=== PATIENT | female | born 1940 | race Caucasian/White ===

== ENCOUNTER 2021-12-20 10:10 | Emergency (ER) | payer MEDICARE, BC, SELFPAY ==
[2021-12-20] VITALS (60 sets, daily range): BP systolic 115–235; BP diastolic 58–150; PULSE 76–132; RESP 11–34; TEMP 36.7; O2SAT 92–98; BMI 32.8
--- NOTE | 2021-12-20 10:14 | DI.RAD.S_ITS ---
PROCEDURE: XR CHEST 1V INDICATIONS: chest pain TECHNIQUE: One view of the chest was acquired. COMPARISON: None. FINDINGS: Surgical changes and devices: None. Lungs and pleura: There is moderate patchy diffuse reticulonodular pulmonary opacity with basilar predominance. No pleural effusions or pneumothorax. Mediastinum: Mediastinal contours appear normal. Heart size is normal. Bones and chest wall: No suspicious bony lesions. Overlying soft tissues appear unremarkable. IMPRESSION: Moderate atypical pneumonia. Dictated by: Christy Larson M.D. on 12/20/2021 at 10:42 Approved by: Christy Larson M.D. on 12/20/2021 at 10:42
[2021-12-20 10:30] LABS: Add Manual Diff / Slide Review NO; Basophils Absolute Auto 100 /uL (0-100); Basophils Percent Auto 0.7 % (0-2); Eosinophils Absolute Auto 200 /uL (0-450); Eosinophils Percent Auto 2.7 % (2-4); Hematocrit 41.1 % (36-46); Hemoglobin 13.7 g/dL (12.0-16.0); Lymphocytes Absolute Auto 1100 /uL (1100-4500); Lymphocytes Percent Auto 14.1 % (25-40); Mean Corpuscular HGB Conc 33.4 % (30-36); Mean Corpuscular Hemoglobin 28.8 PG (26-34); Mean Corpuscular Volume 86.2 fL (80-100); Monocytes Absolute Auto 900 /uL (0-900); Monocytes Percent Auto 11.7 % (3-14); Neutrophils Absolute Auto 5500 /uL (1500-7000); Neutrophils Percent Auto 70.8 % (50-75); Platelet Count 213 X10^3/uL (150-400); Red Blood Cell Count 4.77 X10^6/uL (4.0-5.2); Red Cell Distribution Width 17.1 % (11.6-14.8); White Blood Cell Count 7.7 X10^3/uL (4.5-11.0)
[2021-12-20] MEDS: NITROGLYCERIN 0.4 MG SL TAB SL ×3 (10:35→10:46)
[2021-12-20 10:38] LABS: INR 1.2 (0.9-1.3); Prothrombin Time 13.5 SECONDS (10.1-12.7)
[2021-12-20] MEDS: ASPIRIN 81 MG CHEW TAB 324 MG PO (10:40)
[2021-12-20 10:41] LABS: PTT Partial Thromboplastin Tim 38 SECONDS (26.4-36.2)
[2021-12-20 10:42] LABS: Alanine Aminotransferase 23 IU/L (<35); Albumin 4.7 g/dL (3.5-5.0); Albumin Globulin Ratio 1.3 (1.0-2.8); Alkaline Phosphatase 119 U/L (38-126); Aspartate Aminotransferase 33 IU/L (14-36); BUN Creatinine Ratio 22.4 (6-22); Bilirubin Total 1.4 mg/dL (0.2-1.3); Blood Urea Nitrogen 17 mg/dL (7-17); Calcium 9.1 mg/dL (8.4-10.2); Carbon Dioxide 28 mmol/L (22-32); Chloride 95 mmol/L (98-107); Creatine Kinase 76 U/L (30-135); Estimated Glomerular Filt Rate > 60 mL/min (>60); Globulin 3.5 g/dL (1.7-4.1); Glucose 167 mg/dL (80-110); HEMOLYSIS < 15 (0-50); Lipase 200 U/L (23-300); Magnesium 1.8 mg/dL (1.6-2.3); Potassium 4.2 mmol/L (3.4-5.1); Sodium 133 mmol/L (137-145); Total Protein 8.2 g/dL (6.3-8.2)
[2021-12-20 10:45] LABS: COVID19 -Nasal RAPID Negative (Negative)
--- NOTE | 2021-12-20 10:53 | ED_ITS ---
HPI - Chest Pain General Chief Complaint: Chest Pain Stated Complaint: Chest pain Time Seen by Provider: 12/20/21 10:34 Source: patient and family (daughter in law) Mode of arrival: Wheelchair Limitations: no limitations History of Present Illness HPI narrative: This is an a 81-year-old female with known atrial fibrillation on Eliquis, prior cardiac stents remotely, insulin-dependent diabetes. Patient states this morning just after breakfast about 8:30 a.m. she developed substernal and just to the left chest pain radiating towards her back without any radiation down her arm or to her neck or abdomen. She states it has been persistent, she describes it as crushing has its maximum but not quite as intense upon arrival it has improved after 2 sublingual nitro but still present. She is recently had some shortness of breath but not worsened today, her and her [id number] both noted she has increasing swelling bilateral lower extremities recently she took a Lasix yesterday. She denies diaphoresis, no nausea or vomiting. No shortness of breath currently. She felt a little lightheaded this morning but no presyncope or syncope. Denies fevers or chills. She is had a mild cough. She does not appreciate any exertional component to her chest pain. She had similar symptoms about 2 months ago, and has had an EGD and colonoscopy to evaluate for anemia in July or August of 2021. Patient states since then she just has not felt right. She states she is had cardiac stents at least 10 years or more in the past when she lived in [place], prior gastric bypass, denies other cardiac interventions such as valve replacement, pacemaker ablation. States she is allergic to fentanyl and was told she had a reaction under anesthesia with it. No tobacco, alcohol or illicit. Her primary care is through [facility]. She is not currently established with Cardiology. Patient was living in the [facility] but has just moved in with her family locally. Related Data Allergies Allergy/AdvReac Type Severity Reaction Status Date / Time fentanyl Allergy Verified 12/20/21 10:15 Review of Systems Review of Systems ROS Unobtainable: All systems reviewed & are unremarkable except as noted in HPI and below Patient History Social History Smoking Status: Unknown if ever smoked Smoking Status: Unknown if ever smoked alcohol intake frequency: holidays/special occasions only Substance Use Type: does not use Exam Narrative Exam Narrative: GENERAL: Alert and oriented x three, elderly obese female in mild distress. HEENT: Head normocephalic, atraumatic, EOMI, pupils reactive, face symmetric, moist mucous membranes NECK: Supple, full range of motion CARDIOVASCULAR: Regular rate and rhythm without murmurs, rubs or gallops. No JVD. 2+ edema bilateral lower extremities. RESPIRATORY: Breath sounds equal bilaterally, no wheezes rales or rhonchi. No tachypnea, no accessory muscle use. Speaks in full sentences. ABDOMEN: Soft, nontender. Normoactive bowel sounds all 4 quadrants. No guarding or rebound, rigidity, no mass : No CVA tenderness EXTREMITIES: Normal range of motion. Neurovascularly intact NEUROLOGICAL: Cranial nerves II through XII grossly intact. Moving all extremities SKIN: Warm, dry, no petechiae, no rashes or lesions. Initial Vital Signs Initial Vital Signs: Vital Signs Temperature 98.0 F 12/20/21 10:10 Pulse Rate 132 H 12/20/21 10:10 Respiratory Rate 25 H 12/20/21 10:10 Blood Pressure 235/107 H 12/20/21 10:10 Pulse Oximetry 96 12/20/21 10:10 Oxygen Delivery Method 12/20/21 10:10 Course Orders Ordered: ED Orders 12/20/21 10:10 BNP [NT-proBNP (BNP-Adult 18+)] Stat COVID19 -Nasal RAPID/Pre-Proc Stat Complete Blood Count AUTO DIFF Stat Comprehensive Metabolic Panel Stat Lipase Stat Magnesium Stat Partial Thromboplastin Time Stat Prothrombin Time INR Stat Troponin & CK Cardiac Panel Stat 12/20/21 10:12 EKG-12 Lead Stat 12/20/21 10:14 XR chest 1V Stat 12/20/21 12:09 Trop I [Troponin I] Stat EKG-12 Lead Stat 12/20/21 13:15 EC echo doppler complete Stat 12/20/21 15:22 Partial Thromboplastin Time Stat 12/20/21 18:24 Troponin I Q6H 12/20/21 19:00 Partial Thromboplastin Time Q6H 12/21/21 01:00 Partial Thromboplastin Time Q6H 12/21/21 07:00 Partial Thromboplastin Time Q6H Nitroglycerin (Nitroglycerin) 50 mg in 250 mls @ 1.5 mls/hr IV TITRATE OMAR; Protocol Last Admin: 12/20/21 13:51 Dose: 5 mcg/min, 1.5 mls/hr Documented By: ROSY Heparin Sodium/Dextrose (Heparin Drip) 25,000 unit in 500 mls @ 20.14 mls/hr IV CONT OMAR; Protocol Last Admin: 12/20/21 16:05 Dose: 12 units/kg/hr, 20.14 mls/hr Documented By: MELANI Discontinued Medications Aspirin (Aspirin 81 Mg Chew Tab) 324 mg PO NOW ONE Stop: 12/20/21 10:35 Last Admin: 12/20/21 10:40 Dose: 324 mg Documented By: ROSY Atorvastatin Calcium (Atorvastatin 20 Mg Tablet) 80 mg PO NOW ONE Stop: 12/20/21 13:17 Last Admin: 12/20/21 13:53 Dose: 80 mg Documented By: ROSY Furosemide (Furosemide 40 Mg/4 Ml Vial) 40 mg IV NOW ONE Stop: 12/20/21 11:57 Last Admin: 12/20/21 12:10 Dose: 40 mg Documented By: JOHNATHAN Heparin Sodium (Porcine) (Heparin 5,000 Unit/Ml Vial) 5,000 unit IV NOW ONE Stop: 12/20/21 12:58 Last Admin: 12/20/21 13:09 Dose: 5,000 unit Documented By: MELANI Heparin Sodium/Dextrose (Heparin Drip) 25,000 unit in 500 mls @ 20 mls/hr IV CONT OMAR; Protocol Last Titration: 12/20/21 16:10 Dose: 0 units/hr, 0 mls/hr Documented By: Titration: 12/20/21 16:04 Dose: 0 units/hr, 0 mls/hr Documented By: Admin: 12/20/21 13:09 Dose: 1,000 units/hr, 20 mls/hr Documented By: MELANI Nitroglycerin (Nitroglycerin 0.4 Mg Sl Tab) 0.4 mg SL [id number] PRN PRN Reason: Chest Pain Last Admin: 12/20/21 10:46 Dose: 0.4 mg Documented By: Admin: 12/20/21 10:41 Dose: 0.4 mg Documented By: Admin: 12/20/21 10:35 Dose: 0.4 mg Documented By: ROSY Nitroglycerin (Nitroglycerin Oint 1 Inch/Gm Oint...G.) 0.5 inch TOP NOW ONE Stop: 12/20/21 12:15 Last Admin: 12/20/21 12:22 Dose: 0.5 inch Documented By: KF Reevaluation(s) Reevaluation #1: Patient chest pain improved but not resolved, level 2-3. Reevaluation #2: Updated patient on recomendations from cardiology and elevated troponin. Time: 13:24 Reevaluation #3: On recheck patient is chest pain free on nitro gtt and heparin gtt. Consultations Consultation #1: Dr. Morales, cardiology. Agrees with current plan for nitro drip, heparin, transfer for evaluation by Cardiology and cardiac catheterization. Time: 13:15 Consultation #2: Dr. Guardado, cardiology [facility] is happy to see the patient at their facility. Asked that we speak with the hospitalist service. Time: 14:37 Consultation #3: Dr. Argueta, hospitalist accepts at [facility] in [place]. Vital Signs Vital signs: Vital Signs - 8 hr 12/20/21 10:46 12/20/21 10:47 12/20/21 11:00 Pulse Rate 93 H 93 H Respiratory Rate 18 Blood Pressure 169/74 H 169/76 H 149/70 H Pulse Oximetry 98 Oxygen Delivery Method 12/20/21 11:00 12/20/21 11:15 12/20/21 11:30 Pulse Rate 82 77 Respiratory Rate 33 H 25 H Blood Pressure 164/72 H Pulse Oximetry 94 95 Oxygen Delivery Method 12/20/21 11:30 12/20/21 12:22 12/20/21 13:51 Pulse Rate 78 98 H 77 Respiratory Rate 16 Blood Pressure 159/74 H 143/72 H Pulse Oximetry 96 Oxygen Delivery Method 12/20/21 13:14 12/20/21 13:14 12/20/21 13:15 Pulse Rate 84 Respiratory Rate 24 Blood Pressure 126/68 Pulse Oximetry 97 97 Oxygen Delivery Method Room Air Room Air 12/20/21 13:27 12/20/21 13:27 12/20/21 13:30 Pulse Rate 82 Respiratory Rate 18 Blood Pressure 148/70 H 146/68 H Pulse Oximetry 95 Oxygen Delivery Method Room Air 12/20/21 13:30 12/20/21 13:35 12/20/21 13:35 Pulse Rate 79 80 Respiratory Rate 14 17 Blood Pressure 147/70 H Pulse Oximetry 95 95 Oxygen Delivery Method Room Air Room Air 12/20/21 13:40 12/20/21 13:40 12/20/21 13:45 Pulse Rate 78 Respiratory Rate 19 Blood Pressure 162/71 H 155/70 H Pulse Oximetry 93 Oxygen Delivery Method Room Air 12/20/21 13:45 12/20/21 13:50 12/20/21 13:50 Pulse Rate 80 81 Respiratory Rate 18 22 Blood Pressure 143/72 H Pulse Oximetry 93 94 Oxygen Delivery Method Room Air Room Air 12/20/21 13:55 12/20/21 13:55 12/20/21 14:00 Pulse Rate 82 Respiratory Rate 22 Blood Pressure 148/70 H 135/68 Pulse Oximetry 96 Oxygen Delivery Method Room Air 12/20/21 14:00 12/20/21 14:05 12/20/21 14:05 Pulse Rate 80 81 Respiratory Rate 14 11 L Blood Pressure 137/61 Pulse Oximetry 95 94 Oxygen Delivery Method Room Air Room Air 12/20/21 14:10 12/20/21 14:10 12/20/21 14:15 Pulse Rate 80 Respiratory Rate 22 Blood Pressure 136/66 126/59 L Pulse Oximetry 95 Oxygen Delivery Method Room Air 12/20/21 14:15 12/20/21 14:20 12/20/21 14:20 Pulse Rate 82 80 Respiratory Rate 18 13 Blood Pressure 115/58 L Pulse Oximetry 95 96 Oxygen Delivery Method Room Air Room Air 12/20/21 14:25 12/20/21 14:25 12/20/21 14:30 Pulse Rate 84 Respiratory Rate 19 Blood Pressure 128/66 129/64 Pulse Oximetry 93 Oxygen Delivery Method Room Air 12/20/21 14:30 12/20/21 14:35 12/20/21 14:35 Pulse Rate 81 84 Respiratory Rate 16 29 H Blood Pressure 132/60 Pulse Oximetry 96 94 Oxygen Delivery Method 12/20/21 14:45 12/20/21 15:00 12/20/21 15:15 Pulse Rate 88 85 81 Respiratory Rate 22 20 20 Blood Pressure Pulse Oximetry 96 95 95 Oxygen Delivery Method Room Air Room Air Room Air 12/20/21 15:19 12/20/21 15:19 12/20/21 15:20 Pulse Rate 83 Respiratory Rate 20 Blood Pressure 125/72 140/63 Pulse Oximetry 96 Oxygen Delivery Method Room Air 12/20/21 15:20 12/20/21 15:25 12/20/21 15:25 Pulse Rate 81 78 Respiratory Rate 20 15 Blood Pressure 129/62 Pulse Oximetry 96 97 Oxygen Delivery Method Room Air Room Air 12/20/21 15:30 12/20/21 15:30 12/20/21 15:35 Pulse Rate 80 Respiratory Rate 20 Blood Pressure 134/64 124/60 Pulse Oximetry 96 Oxygen Delivery Method Room Air 12/20/21 15:35 12/20/21 15:40 12/20/21 15:40 Pulse Rate 80 78 Respiratory Rate 20 18 Blood Pressure 128/60 Pulse Oximetry 97 96 Oxygen Delivery Method Room Air Room Air 12/20/21 15:45 12/20/21 15:45 12/20/21 15:50 Pulse Rate 76 Respiratory Rate 32 H Blood Pressure 119/58 L 119/61 Pulse Oximetry 95 Oxygen Delivery Method 12/20/21 15:50 12/20/21 16:00 12/20/21 16:15 Pulse Rate 81 86 85 Respiratory Rate Blood Pressure Pulse Oximetry 94 92 96 Oxygen Delivery Method 12/20/21 16:30 12/20/21 16:45 12/20/21 17:00 Pulse Rate 79 80 79 Respiratory Rate Blood Pressure Pulse Oximetry 97 96 96 Oxygen Delivery Method 12/20/21 17:15 12/20/21 17:30 12/20/21 17:45 Pulse Rate 82 79 83 Respiratory Rate Blood Pressure Pulse Oximetry 98 97 96 Oxygen Delivery Method 12/20/21 18:00 12/20/21 15:50 12/20/21 15:50 Pulse Rate 77 81 Respiratory Rate Blood Pressure 119/61 Pulse Oximetry 96 94 Oxygen Delivery Method 12/20/21 16:00 12/20/21 16:15 12/20/21 16:30 Pulse Rate 86 85 79 Respiratory Rate Blood Pressure Pulse Oximetry 92 96 97 Oxygen Delivery Method 12/20/21 16:45 12/20/21 17:00 12/20/21 17:15 Pulse Rate 80 79 82 Respiratory Rate Blood Pressure Pulse Oximetry 96 96 98 Oxygen Delivery Method 12/20/21 17:30 12/20/21 17:45 12/20/21 18:00 Pulse Rate 79 83 77 Respiratory Rate Blood Pressure Pulse Oximetry 97 96 96 Oxygen Delivery Method 12/20/21 18:15 07/28/22 18:20 12/20/21 18:20 Pulse Rate 88 85 Respiratory Rate Blood Pressure 155/67 H Pulse Oximetry 94 Oxygen Delivery Method MDM - Chest Pain Lab Data Result diagrams: 12/20/21 10:10 12/20/21 10:10 Labs: Lab Results 12/20/21 12/20/21 12/20/21 Range/Units 10:10 10:10 10:10 WBC 7.7 (4.5-11.0) X10^3/uL RBC 4.77 (4.0-5.2) X10^6/uL Hgb 13.7 (12.0-16.0) g/dL Hct 41.1 (36-46) % MCV 86.2 (80-100) fL MCH 28.8 (26-34) PG MCHC 33.4 (30-36) % RDW 17.1 H (11.6-14.8) % Plt Count 213 (150-400) X10^3/uL Neut % (Auto) 70.8 (50-75) % Lymph % (Auto) 14.1 L (25-40) % Bandera % (Auto) 11.7 (3-14) % Eos % (Auto) 2.7 (2-4) % Baso % (Auto) 0.7 (0-2) % Neut # (Auto) 5500 (6199-3799) /uL Lymph # (Auto) 1100 (7464-6751) /uL Bandera # (Auto) 900 (0-900) /uL Eos # (Auto) 200 (0-450) /uL Baso # (Auto) 100 (0-100) /uL PT 13.5 H (10.1-12.7) SECONDS INR 1.2 (0.9-1.3) APTT 38 H (26.4-36.2) SECONDS Sodium 133 L (137-145) mmol/L Potassium 4.2 (3.4-5.1) mmol/L Chloride 95 L (98-107) mmol/L Carbon Dioxide 28 (22-32) mmol/L BUN 17 (7-17) mg/dL Creatinine 0.76 (0.52-1.04) mg/dL Estimated GFR > 60 (>60) mL/min BUN/Creatinine Ratio 22.4 H (6-22) Glucose 167 H (80-110) mg/dL Calcium 9.1 (8.4-10.2) mg/dL Magnesium 1.8 (1.6-2.3) mg/dL Total Bilirubin 1.4 H (0.2-1.3) mg/dL AST 33 (14-36) IU/L ALT 23 (<35) IU/L Alkaline Phosphatase 119 (38-126) U/L Total Creatine Kinase 76 (30-135) U/L CK-MB (CK-2) TNP CK-MB (CK-2) Rel Index TNP Troponin I 0.021 (0.01-0.034) ng/mL NT-Pro-B Natriuret Pep (<450) pg/mL Total Protein 8.2 (6.3-8.2) g/dL Albumin 4.7 (3.5-5.0) g/dL Globulin 3.5 (1.7-4.1) g/dL Albumin/Globulin Ratio 1.3 (1.0-2.8) Lipase 200 (23-300) U/L SARS-CoV-2 (PCR) (Negative) 12/20/21 12/20/21 12/20/21 Range/Units 10:10 10:10 12:09 WBC (4.5-11.0) X10^3/uL RBC (4.0-5.2) X10^6/uL Hgb (12.0-16.0) g/dL Hct (36-46) % MCV (80-100) fL MCH (26-34) PG MCHC (30-36) % RDW (11.6-14.8) % Plt Count (150-400) X10^3/uL Neut % (Auto) (50-75) % Lymph % (Auto) (25-40) % Band[place] % (Auto) (3-14) % Eos % (Auto) (2-4) % Baso % (Auto) (0-2) % Neut # (Auto) (3305-5144) /uL Lymph # (Auto) (5067-7303) /uL Bandera # (Auto) (0-900) /uL Eos # (Auto) (0-450) /uL Baso # (Auto) (0-100) /uL PT (10.1-12.7) SECONDS INR (0.9-1.3) APTT (26.4-36.2) SECONDS Sodium (137-145) mmol/L Potassium (3.4-5.1) mmol/L Chloride (98-107) mmol/L Carbon Dioxide (22-32) mmol/L BUN (7-17) mg/dL Creatinine (0.52-1.04) mg/dL Estimated GFR (>60) mL/min BUN/Creatinine Ratio (6-22) Glucose (80-110) mg/dL Calcium (8.4-10.2) mg/dL Magnesium (1.6-2.3) mg/dL Total Bilirubin (0.2-1.3) mg/dL AST (14-36) IU/L ALT (<35) IU/L Alkaline Phosphatase (38-126) U/L Total Creatine Kinase (30-135) U/L CK-MB (CK-2) CK-MB (CK-2) Rel Index Troponin I 0.344 H* (0.01-0.034) ng/mL NT-Pro-B Natriuret Pep 814 H (<450) pg/mL Total Protein (6.3-8.2) g/dL Albumin (3.5-5.0) g/dL Globulin (1.7-4.1) g/dL Albumin/Globulin Ratio (1.0-2.8) Lipase (23-300) U/L SARS-CoV-2 (PCR) Negative (Negative) 12/20/21 Range/Units 14:15 WBC (4.5-11.0) X10^3/uL RBC (4.0-5.2) X10^6/uL Hgb (12.0-16.0) g/dL Hct (36-46) % MCV (80-100) fL MCH (26-34) PG MCHC (30-36) % RDW (11.6-14.8) % Plt Count (150-400) X10^3/uL Neut % (Auto) (50-75) % Lymph % (Auto) (25-40) % Bandera % (Auto) (3-14) % Eos % (Auto) (2-4) % Baso % (Auto) (0-2) % Neut # (Auto) (8527-3912) /uL Lymph # (Auto) (2552-4447) /uL Bandera # (Auto) (0-900) /uL Eos # (Auto) (0-450) /uL Baso # (Auto) (0-100) /uL PT (10.1-12.7) SECONDS INR (0.9-1.3) APTT Cancelled (26.4-36.2) SECONDS Sodium (137-145) mmol/L Potassium (3.4-5.1) mmol/L Chloride (98-107) mmol/L Carbon Dioxide (22-32) mmol/L BUN (7-17) mg/dL Creatinine (0.52-1.04) mg/dL Estimated GFR (>60) mL/min BUN/Creatinine Ratio (6-22) Glucose (80-110) mg/dL Calcium (8.4-10.2) mg/dL Magnesium (1.6-2.3) mg/dL Total Bilirubin (0.2-1.3) mg/dL AST (14-36) IU/L ALT (<35) IU/L Alkaline Phosphatase (38-126) U/L Total Creatine Kinase (30-135) U/L CK-MB (CK-2) CK-MB (CK-2) Rel Index Troponin I (0.01-0.034) ng/mL NT-Pro-B Natriuret Pep (<450) pg/mL Total Protein (6.3-8.2) g/dL Albumin (3.5-5.0) g/dL Globulin (1.7-4.1) g/dL Albumin/Globulin Ratio (1.0-2.8) Lipase (23-300) U/L SARS-CoV-2 (PCR) (Negative) Imaging Data Chest x-ray: Radiologist's Impression: [address] [address] XRay Report Signed Patient: Mayuri Mosquera MR#: [id number] : 1940 Acct:[id number] Age/Sex: 81 / F Date of Service: 12/20/21 Loc: ED Accession Number: [id number] ?? Procedure: XR chest 1V Ordering Provider: Talia Toney D.O. PROCEDURE:? XR CHEST 1V ? INDICATIONS:? chest pain ? TECHNIQUE:? One view of the chest was acquired.? ? COMPARISON:? None. ? FINDINGS:? ? Surgical changes and devices:? None.? ? Lungs and pleura:? There is moderate patchy diffuse reticulonodular pulmonary opacity with basilar predominance.? No pleural effusions or pneumothorax.? ? Mediastinum:? Mediastinal contours appear normal.? Heart size is normal.? ? Bones and chest wall:? No suspicious bony lesions.? Overlying soft tissues appear unremarkable.? ? IMPRESSION:? Moderate atypical pneumonia. ? ? Dictated by: Christy Larson M.D. on 12/20/2021 at 10:42 ? ? Approved by: Christy Larson M.D. on 12/20/2021 at 10:42?? ECG Data Attestation: I personally reviewed and interpreted this ECG as follows: Prior ECG tracings: not available for review Interpretation: AFib with rate of 104 QRS is [address] Patient has [address] depression 1 and aVL. No elevation appreciated. Patient does not have any priors for comparison. AFib rate 82 QRS is 76 QTC of 434. No acute ST elevation appreciated. Patient does have depression in 1 and aVL. Patient's EKG does not have any dynamic changes in comparison to prior from earlier today. MDM Narrative Medical decision making narrative: This is an 81-year-old female with known cardiac history, AFib on Eliquis who developed substernal chest pain radiating towards her back this morning after eating. Patient has had some prior episodes about 2 months ago. She has not had a cardiac evaluation in quite some time she is not currently established with a manager marketing communication. EKG shows AFib, patient was quite hypertensive upon arrival, CBC shows no major changes, no significant abnormalities hemoglobin, bilirubin is elevated at 1.4 but normal lipase, AST ALT, trope is 0.021, troponin repeated at 2 hour nick, BNP and both are elevated. Troponin is positive for NSTEMI. Patient chest x-ray shows possible pneumonia but patient has not had any infectious symptoms he this less likely and an unlikely cause of her elevation in troponin. Patient's chest pain significantly improved with n itro sublingual nitro paste but had not resolved so nitro drip is initiated, heparin, patient had received aspirin in the department. Dose of IV Lasix and statin therapy was initiated. Case was discussed with cardiology who agrees with plan and goal to transfer patient and to continue with nitro and heparin. Will begin search for cardiac bed at a facility with inpatient cardiology their significant regional shortage is and patients have often been boarding for 2-3 days before transfer is available. This was shared with the patient and family. Patient is accepted at [place] for transfer by Dr. Argueta. Patient is chest pain-free on nitro drip and heparin. There is noted be a PTT that is elevated this was drawn too early from when bolus was given. Will repeat in appropriate time frame. Critical Care Time Critical Care Time Critical Care Time: Yes Total Critical Care Time: 45 Attestation: The high probability of a clinically significant, sudden or life threatening deterioration of the [cardiac, pulm] system(s) required my full and direct attention, intervention and personal management. The aggregate critical care time was [45] minutes. This time is in addition to time spent performing reported procedures but includes the following: [x] Data Review and interpretation [x] Patient assessment and monitoring of vital signs [x] Documentation [x] Medication orders and management Discharge Plan Departure Patient Disposition: [facility] Clinical Impression: Non-ST elevation VT (NSTEMI)
[2021-12-20 10:54] LABS: Troponin I 0.021 ng/mL (0.01-0.034)
[2021-12-20 11:00] LABS: NT-proBNP (BNP-Adult 18+) 814 pg/mL (<450)
[2021-12-20] MEDS: FUROSEMIDE 40 MG/4 ML VIAL IV (12:10)
[2021-12-20] MEDS: NITROGLYCERIN OINT 1 INCH/GM OINT...G. 0.5 INCH TOP (12:22)
[2021-12-20 12:56] LABS: Troponin I 0.344 ng/mL (0.01-0.034)
[2021-12-20] MEDS: HEPARIN DRIP 25,000 UNIT/500 ML IV.SOLN 20 UNIT IV (13:09)
[2021-12-20] MEDS: HEPARIN 5,000 UNIT/ML VIAL 5000 UNIT IV (13:09)
[2021-12-20] MEDS: NITROGLYCERIN 50 MG/250 ML INFUS..BTL IV (13:51)
[2021-12-20] MEDS: ATORVASTATIN 20 MG TABLET 80 MG PO (13:53)
[2021-12-20] MEDS: HEPARIN DRIP 25,000 UNIT/500 ML IV.SOLN 20.14 UNIT IV (16:05)
--- NOTE | 2021-12-20 18:35 | PC.NURSE ---
report called to Koki DAVISON @ [facility]
--- NOTE | 2021-12-20 19:09 | PC.NURSE ---
Pt left ED with Nitro running at 1.5ml/hr 5mcg/min. Nitro terminated in JUL @ 1909. Heparin was running at 12units/kg/hr @ 20ml/hr. Heparin terminated in the MAR at 1909. EMS left w/ pt at 1910.
[2021-12-20 19:24] LABS: PTT Partial Thromboplastin Tim > 200 SECONDS (26.4-36.2)
== END 2021-12-20 19:22 | disposition short-term general hospital (02) ==
PROVIDERS: Emergency Provider Emergency Medicine
DX: I21.4 Non-ST elevation (NSTEMI) myocardial infarction (principal); Z20.822 Contact with and (suspected) exposure to COVID-19; Z79.01 Long term (current) use of anticoagulants; R79.89 Other specified abnormal findings of blood chemistry
CPT/HCPCS: 36415; 71045; 80053; 82550; 83690; 83735; 83880; 84484; 85025; 85610; 85730; 87635; 93005; 96365; 96366; 96367; 96375; 99284; 99291; C9803; J1644; J1940